=== PATIENT | male | born 1955 | race Caucasian/White ===

== ENCOUNTER 2022-05-06 20:55 | Emergency (ER) | payer OTHER ==
[~2022-05-06] VITALS: Ht 165.1 cm; Wt 108.0 kg
[2022-05-06 22:14] VITALS: BP 146/94
--- NOTE | 2022-05-07 00:35 | NUR ---
Pt to bed 9.
--- NOTE | 2022-05-07 00:44 | NUR ---
Patient A/Ox4, chest rise and fall symmetrical, lying in bed, no s/s of distress, on monitor.
[2022-05-07] MEDS ORDERED: LIDOCAINE/EPI 2% 1:100000 20 ML VIAL INJ ONE (01:10)
--- NOTE | 2022-05-07 01:20 | NUR ---
ER physician at bedside with patient.
[2022-05-07] MEDS ORDERED: SULF-59 PO (01:39)
[2022-05-07] MEDS ORDERED: ACET-10509 PO (01:39)
[2022-05-07 02:22] VITALS: BP 124/85
== END 2022-05-07 02:23 | disposition home or self-care (01) ==
LOC: MED 20:55
DX: L02.211 Cutaneous abscess of abdominal wall (principal); E11.9 Type 2 diabetes mellitus without complications; Z79.899 Other long term (current) drug therapy; Z98.890 Other specified postprocedural states
CPT/HCPCS: 10060; 99284; J2001